=== PATIENT | male | born 1980 | race Caucasian/White ===

== ENCOUNTER 2017-04-29 16:00 | Inpatient (IN) | payer OTHER ==
[~2017-04-29] VITALS: Ht 185.4 cm; Wt 108.9 kg
--- NOTE | ~2017-04-29 | DS ---
Unit #: [id number] #: [id number] Patient: ALEX KEARNEY [id number] [facility] [address] [place] [address] [id number] MR#: [id number] NAME: ALEX KEARNEY. ROOM: [facility] Age: 36 Sex: M Admission Date: 04/29/2017 : 1980 Discharge Date: 05/02/2017 Attending Physician: Glenn Babcock M.D. Primary Care Physician: Primary Care Physician No DISCHARGE SUMMARY REASON FOR ADMISSION The patient is a 36-year-old single white male, admitted to the [address] [place] [address] for opioid detox. HOSPITAL COURSE The patient was admitted to [address] [place] [address] and placed on routine detoxification protocol for opioids and was also placed on p.r.n. Ativan for any symptoms of Xanax withdrawal. The patient exhibited surprisingly few signs of withdrawal and by 05/02/2017, requested discharge. He did, during his stay in the hospital, request "something for my depression" and was begun on Celexa 20 mg at bedtime which he tolerated without complaint. By 05/02/2017, the patient was in bright spirits and exhibited no signs or symptoms of benzodiazepine or opioid withdrawal. Discharge was ordered. FINAL DIAGNOSES Opioid use disorder; sedative hypnotic use disorder; dysthymic disorder. DISPOSITION ON DISCHARGE The patient is discharged on the following medications: Citalopram 20 mg daily for depression. DISCHARGE INSTRUCTIONS No dietary or physical restrictions were placed on the patient at the time of discharge. FOLLOWUP Followup will take place through the auspices of community mental health resources. PROGNOSIS His prognosis is considered fair. Dictated by... Glenn Babcock M.D. CB/jessica TD: 05/02/2017 17:39 JOB #: [id number] Unit #: [id number] #: [id number] Patient: ALEX KEARNEY DISCHARGE SUMMARY Page 1 of 1 X Glenn Babcock MD X DISCHARGE SUMMARY
--- NOTE | ~2017-04-29 | PA ---
Unit #: [id number] #: [id number] Patient: ALEX KEARNEY [id number] [place] [address] [id number] MR#: [id number] NAME: ALEX KEARNEY. ROOM: [facility] Age: 36 Sex: M Admission Date: 04/29/2017 : 1980 Date of Assessment: 04/30/2017 Attending Physician: Glenn Babcock M.D. Admitting Physician: Glenn Babcock M.D. Primary Care Physician: Primary Care Physician No PSYCHIATRIC ASSESSMENT IDENTIFYING INFORMATION The patient is a 36-year-old single white male admitted to the [address] [place] [address] with a history of opioid and methamphetamine abuse. INFORMANT(S) Patient RELIABILITY Good. CHIEF COMPLAINT Tired of living like this. HISTORY OF PRESENT ILLNESS The patient is a 36-year-old white male admitted to the [address] [place] [address] with a history of opioid and methamphetamine abuse. The patient reports that he has been prescribed methadone and Suboxone for years but has also abused illicitly obtained methamphetamine. The patient was reporting positive suicidal ideation at the time of admission to the hospital related to his ongoing substance use. He has a history of self-mutilatory behavior approximately 10 years ago per his report. The patient also reports that he has "fits of rage" and had cut on himself as recently as last evening. The patient is presently calm and cooperative. He is currently denying suicidal or homicidal ideation and is expressing interest in residential chemical dependence treatment during today's interview. The patient lives with his parents. He is unemployed. He has never and has no children. PAST PSYCHIATRIC HISTORY As noted previously the patient has been in various methadone and Suboxone programs in the past but has never pursued detoxification or residential chemical dependence treatment. PAST MEDICAL HISTORY The patient has a broken tooth. MEDICATIONS Suboxone. ALLERGIES None reported. FAMILY HISTORY Unit #: [id number] #: [id number] Patient: ALEX KEARNEY Noncontributory. SOCIAL HISTORY The patient states that he completed "one year of college". 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 He has never and has no children. He lives with his parents. He is not a smoker. MENTAL STATUS EXAMINATION At this time reveals the patient to be a well-developed, well-nourished white male, appearing his stated age. He is in no apparent physical distress at the time of examination. He is awake, alert, and oriented in all spheres. His mood is mildly dysphoric. His affect congruent. Speech is generally relevant and coherent. There are no gross deficits in memory or cognition noted. Intelligence is judged to be in the average range based on fund of knowledge. The patient is cooperative throughout the interview. He denies current suicidal or homicidal ideation or psychotic features. Judgement and insight appear to be reasonably intact. The patient's assets motivation for change, supportive family. Liabilities none noted. DIAGNOSTIC IMPRESSION Opioid use disorder, methamphetamine use disorder, broken tooth. TREATMENT PLAN The patient remains hospitalized for safety and stabilization. Routine detoxification protocol for opioids has been initiated and suicidal precautions are in place. I will ask the patient's community mental health social worker to see him regarding referral for residential chemical dependence treatment. ESTIMATED LENGTH OF STAY Three to five days. Dictated by... Glenn Babcock M.D. MARY GRACE/naga TD: 04/30/2017 22:04 JOB #: [id number] PSYCHIATRIC ASSESSMENT Page 1 of 1 X Glenn Babcock MD X PSYCHIATRIC ASSESSMENT
--- NOTE | ~2017-04-29 | HP ---
Unit #: [id number] #: [id number] Patient: ALEX KEARNEY [id number] [place] [address] [id number] I MR#: [id number] NAME: ALEX KEARNEY. ROOM: P211 Age: 36 Sex: M Admission Date: 04/29/2017 : 1980 Attending Physician: Glenn Babcock M.D. Admitting Physician: Glenn Babcock M.D. Primary Care Physician: Primary Care Physician No HISTORY AND PHYSICAL HISTORY OF PRESENT ILLNESS The patient is a 36-year-old male admitted to [address] [place] [address] on 04/29/2017 for polysubstance abuse. PAST MEDICAL HISTORY Broken tooth. PAST SURGICAL HISTORY None noted. SOCIAL HISTORY He is unemployed. He lives with his mother and stepfather. He smokes a third of a pack of cigarettes daily and has issues with poly substance abuse including alcohol, marijuana, opioids and methamphetamines. FAMILY MEDICAL HISTORY Noncontributory. ALLERGIES No known drug allergies. CURRENT MEDICATIONS Suboxone. REVIEW OF SYSTEMS CONSTITUTIONAL: No fever or chills. HEENT: Denies any sore throat, ear pain or runny nose. He complains of a broken tooth that it cutting his tongue. CARDIOVASCULAR: Denies chest pain, irregular heart rhythm or palpitations. CHEST: Denies shortness of breath or cough. No hemoptysis. GASTROINTESTINAL: Denies nausea, vomiting, diarrhea or chronic constipation. ENDOCRINE: Denies history of increased thirst or urination. No recent significant weight loss or gain. GENITOURINARY: Denies dysuria, frequency, or hematuria. SKIN: Denies any rashes. HEMATOLOGIC: Denies history of increased bleeding or bruising. MUSCULOSKELETAL: Denies any hot, swollen joints. No generalized muscle pain. NEUROLOGIC: Denies problems with vision or speech. No frequent, severe headaches. No numbness, tingling or weakness in any extremities. Denies loss of bladder or bowel control. Unit #: [id number] #: [id number] Patient: ALEX KEARNEY PHYSICAL EXAM GENERAL: He is awake, alert and oriented in no acute distress. VITAL SIGNS: Temperature 98.1, heart rate 110, respiration 20, blood pressure 118/85. HEIGHT: 6'1". WEIGHT: 240 pounds. SKIN: Warm and dry without rash or lesion. HEENT: Normocephalic. TMs not viewed. Oral and nasal passages clear. Conjunctivae clear. PERRLA. EOMs intact. He has a broken tooth on the bottom left hand side of his mouth that is cutting into his tooth causing a raw area on the left side of his tongue. NECK: Supple without lymphadenopathy or thyromegaly. HEART: Regular rate and rhythm without murmur. LUNGS: Clear. ABDOMEN: Soft, nontender. : Not done. EXTREMITIES: No evidence of cyanosis, clubbing or edema. Moves all without focal deficit. NEUROLOGICAL: Grossly within normal limits. Cranial Nerves: II: Visual hopkins are intact. III, IV AND : Extraocular movements are intact. Pupils are equal, round and reactive to light. V: Facial sensation is grossly normal. VII: Facial movements and expression are normal. VIII: Auditory acuity grossly intact. IX, X: Uvula is midline. Phonation is normal. XI: Patient shrugs shoulders and turns head normally. XII: Tongue protrudes in the midline. Sensory and Motor Function: Sensory and motor sensation is grossly normal. Motor: moves all extremities well. IMPRESSION 1. Psychiatric admission. 2. Broken tooth. RECOMMENDATIONS Psychiatric per psychiatrist. MEDICAL: No contraindication to participate in facility activities. MEDICAL PROGNOSIS Good. MEDICAL CONDITION Stable. Dictated by... Dewey Catalan/naga TD: 05/01/2017 01:09 JOB #: [id number] Unit #: [id number] #: [id number] Patient: ALEX KEARNEY HISTORY AND PHYSICAL Page 1 of 1 X IMER CRESPO APRN HISTORY AND PHYSICAL
--- NOTE | ~2017-04-29 | PN ---
Unit #: [id number] #: [id number] Patient: ALEX KEARNEY [id number] [facility] [address] [place] [address] [id number] MR#: [id number] NAME: ALEX KEARNEY ROOM: P211 Age: 36 Sex: M Admission Date: 04/29/2017 : 1980 Attending Physician: Glenn Babcock M.D. Admitting Physician: Angella Castillo PROGRESS NOTES DATE 05/01/2017 DISCUSSION The patient exhibits little in the way of signs or symptoms of withdrawal during today's interview. He is requesting an initiation of antidepressant medication, and we will give citalopram 20 mg daily in anticipation of being discharged. Dictated by... Glenn Babcock M.D. CB/neisha TD: 05/01/2017 15:24 JOB #: [id number] MARY PROGRESS NOTES Page 1 of 1 X Glenn Babcock MD X PROGRESS NOTE
[2017-04-30 10:47] LABS: BASOPHIL% 0.3 % (0-2.5); EOSINOPHIL# 0.2 X10e3 (0-0.7); EOSINOPHIL% 2.3 % (0.0-7.0); HEMATOCRIT 43.5 % (38.0-50.0); HEMOGLOBIN 14.5 gm/dL (13.0-16.0); LYMPHOCYTE# 2.4 X10e3 (1.0-3.5); LYMPHOCYTE% 24.2 % (17.0-45.0); MEAN CELL VOLUME 84.1 FL (83-96); MEAN CORPUSCULAR HEMOGLOBIN 28.1 PG (28-34); MEAN CORPUSCULAR HGB CONC 33.4 g/dL (30-36); MEAN PLATELET VOLUME 9.7 FL (6.5-11.5); MONOCYTE# 0.6 X10e3 (0-1.0); MONOCYTE% 6.2 % (3.0-12.0); NEUTROPHIL# 6.5 X10e3 (1.5-7.1); PLATELET COUNT 174 X10e3 (140-420); RED BLOOD COUNT 5.18 X10e (3.90-5.60); RED CELL DISTRIBUTION WIDTH 13.2 % (11.0-15.5); WHITE BLOOD COUNT 9.7 X10e3 (4.0-10.5)
[2017-04-30 10:56] LABS: DIFF IND NO
[2017-04-30 11:21] LABS: ALBUMIN SERUM 3.8 g/dL (3.5-5.0); CALCIUM SERUM 9.5 mg/dL (8.4-10.2); CREATININE SERUM 0.8 mg/dL (0.6-1.4); GLOM FILT RATE Estimated 115.8 mL/min (>60); POTASSIUM 4.4 mmol/L (3.5-5.1); PROTEIN TOTAL SERUM 6.6 g/dL (6.0-8.3)
[2017-05-03 17:06] LABS: HA AB IGM (HEPPAN) Nonreactive (()); HB CORE AB IGM (HEPPAN) Nonreactive (Nonreactive); HB S AG (HEPPAN) Nonreactive (Nonreactive); HEP C AB (HEPPAN) Reactive (Nonreactive)
== END 2017-05-02 15:53 | DRG 897 ==
LOC: P2S 19:04
PROVIDERS: Specialist
PROC: HZ2ZZZZ Detoxification Services for Substance Abuse Treatment (ICD-10-PCS; principal; 2017-04-29)
DX: F11.20 Opioid dependence, uncomplicated (principal); F15.20 Other stimulant dependence, uncomplicated; Z56.0 Unemployment, unspecified; F17.210 Nicotine dependence, cigarettes, uncomplicated; S02.5XXA Fracture of tooth (traumatic), initial encounter for closed fracture
CPT/HCPCS: 80053; 80074; 85025; 87522; 87806